=== PATIENT | female | born 1945 | race Caucasian/White ===

== ENCOUNTER 2018-07-01 09:20 | Outpatient (CLI) | payer OTHER | END 2018-07-01 09:30 | disposition home or self-care (01) | LOC: RAD 09:20 | DX: R07.89 Other chest pain (principal) ==

== ENCOUNTER → 2019-05-25 | Outpatient (CLI) | payer OTHER | END | disposition home or self-care (01) | LOC: RAD 09:32 | DX: R05 Cough (principal) ==

== ENCOUNTER 2019-11-21 07:33 | Outpatient (CLI) | payer OTHER | END 2019-11-21 07:40 | disposition home or self-care (01) | LOC: RAD 07:33 | PROVIDERS: ATTEND Physical Medicine & Rehabilitation | DX: M54.2 Cervicalgia (principal); M54.6 Pain in thoracic spine ==

== ENCOUNTER 2022-05-04 08:23 | Outpatient (CLI) | payer OTHER | END 2022-05-04 08:31 | disposition home or self-care (01) | LOC: RAD 08:23 | PROVIDERS: ATTEND General Practice | DX: J44.9 Chronic obstructive pulmonary disease, unspecified (principal) ==

== ENCOUNTER 2023-01-28 10:26 | Outpatient (CLI) | payer OTHER | END 2023-01-28 10:37 | disposition home or self-care (01) | LOC: MAMO-SONO 10:26 | PROVIDERS: ATTEND Obstetrics & Gynecology Maternal & Fetal Medicine | DX: Z12.31 Encounter for screening mammogram for malignant neoplasm of breast (principal); N63.0 Unspecified lump in unspecified breast; N64.4 Mastodynia; N60.11 Diffuse cystic mastopathy of right breast ==

== ENCOUNTER 2023-02-03 09:55 | Outpatient (CLI) | payer OTHER | END 2023-02-03 10:00 | disposition home or self-care (01) | LOC: NUCLEAR 09:55 | PROVIDERS: ATTEND Obstetrics & Gynecology Maternal & Fetal Medicine | DX: M81.0 Age-related osteoporosis without current pathological fracture (principal) ==

== ENCOUNTER 2024-06-16 10:59 | Outpatient (CLI) | payer OTHER | END 2024-06-16 11:06 | disposition home or self-care (01) | LOC: RAD 10:59 | PROVIDERS: ATTEND General Practice | DX: R05.9 Cough, unspecified (principal) ==